=== PATIENT | male | born 1945 | race Caucasian/White ===

== ENCOUNTER 2020-09-08 09:25 | Emergency (ER) | payer MEDICARE ==
[2020-09-08 09:29] VITALS: BP 184/90; PULSE 95; RESP 16; TEMP 98
--- NOTE | 2020-09-08 10:31 | ED ---
Neck Injury/Pain HPI - General Chief Complaint: Neck Pain/Injury Stated Complaint: Neck pain Time Seen by Provider: 09/08/20 09:31 Mode of arrival: ambulatory Limitations: no limitations - History of Present Illness Initial Comments: Patient is a 75-year-old male presenting to the emergency Department with complaints of a few days of neck pain. Patient states over the past week he spent a few days pulling really large weeds throughout his yard. He states he's been using both hands to pull in the weeds. About 2 days ago started noticing some discomfort in his neck and some tightness, he states it felt better as the day progressed but towards the end of the day it came back. Over the past 2 days he has had very little range of motion secondary to tightness. The pain is mostly in the left side of his neck and extends down towards his left upper trap. He denies any numbness and tingling into his upper extremities, no chest pain or shortness of breath. He denies any previous surgeries or injuries to his neck. He denies any fevers or chills. He has no further complaints at this time. - Related Data Previous Rx's Medication Instructions Recorded Cyclobenzaprine [Flexeril] 5 mg PO BID #10 tablet 09/08/20 predniSONE 50 mg PO DAILY #5 tab 09/08/20 Allergies Allergy/AdvReac Type Severity Reaction Status Date / Time No Known Allergies Allergy Verified 09/08/20 09:27 Review of Systems ROS Statement: Those systems with pertinent positive or pertinent negative responses have been documented in the HPI. ROS Other: All systems not noted in ROS Statement are negative. Past Medical History Past Medical History: No Reported History History of Any Multi-Drug Resistant Organisms: None Reported Past Surgical History: No Surgical Hx Reported Past Psychological History: No Psychological Hx Reported Smoking Status: Current every day smoker Past Alcohol Use History: Occasional Past Drug Use History: None Reported General Exam - General Exam Comments Initial Comments: GENERAL: Patient is well-developed and well-nourished. Patient is nontoxic and in no acute distress. HEAD: Atraumatic, normocephalic. EYES: Pupils equal round and reactive to light, extraocular movements intact, sclera anicteric, conjunctiva are normal. Eyelids were unremarkable. ENT: TMs normal, nares patent, oropharynx clear without exudates. Moist mucous membranes. NECK: Patient has mild pain with palpation of the left cervical paraspinals extending down to the left upper trap. He does have decreased active range of motion in all directions secondary to tightness and discomfort. supple without lymphadenopathy or JVD. LUNGS: Unlabored respirations. Breath sounds clear to auscultation bilaterally and equal. No wheezes rales or rhonchi. HEART: Regular rate and rhythm without murmurs, rubs or gallops. ABDOMEN: Soft, nontender, normoactive bowel sounds. MUSCULOSKELETAL: Normal extremities with adequate strength and normal range of motion, no pitting or edema. No clubbing or cyanosis. NEUROLOGICAL: Patient is alert and oriented x 3. SKIN: Warm, Dry, normal turgor, no rashes or lesions noted. Limitations: no limitations Course Vital Signs 09/08/20 09:27 Temperature 98.0 F Pulse Rate 95 Respiratory 16 Rate Blood Pressure 184/90 O2 Sat by Pulse 96 Oximetry Medical Decision Making - Medical Decision Making Patient is a 75-year-old male presenting with neck pain and tightness increasing over the past 3 days. He has been pulling weeds all week and thinks this contributed. No previous neck surgeries, no numbness and tingling down his arms, no alarming symptoms. X-ray of the cervical spine reveals some degenerative changes, no acute fractures dislocations. I discussed with patient that his symptoms are most likely consistent with muscle spasms and overuse from his weed pulling. I will give him a prescription for a few days of a steroid as well as a muscle relaxer. He can also use Tylenol threes for more severe pain. He is agreeable to this plan of care. If symptoms persist to follow up with his primary care physician. He is agreeable to this. Return parameters were discussed with him and he verbalized understanding. Case discussed with Dr. Casper. Disposition Clinical Impression: Strain of neck muscle Disposition: HOME SELF-CARE Condition: Stable Instructions (If sedation given, give patient instructions): Cervical Strain (ED) Additional Instructions: Please return to the Emergency Department if symptoms worsen or any other concerns. Trial of steroids for inflammation, muscle relaxers for tightness. Also apply heat to the area and gentle stretching as discussed. May take Tylenol threes for more severe pain. Follow-up with your primary care physician if symptoms persist. Prescriptions: Cyclobenzaprine [Flexeril] 5 mg PO BID #10 tablet predniSONE 50 mg PO DAILY #5 tab Is patient prescribed a controlled substance at d/c from ED?: No Referrals: Tashi Burt MD [Primary Care Provider] - 1-2 days Time of Disposition: 11:02
--- NOTE | 2020-09-08 10:45 | XR ---
EXAMINATION TYPE: XR cervical spine comp DATE OF EXAM: 09/08/2020 COMPARISON: NONE HISTORY: 75 years Male. STUDY INDICATION GIVEN: Neck pain TECHNIQUE: Multiple radiographs of the cervical spine FINDINGS AND IMPRESSION: There is reversal of the cervical curvature. Alignment at the craniocervical junction is normal. Vertebral body heights are normal. Multilevel narrowing of the intervertebral spaces and bilateral neural foramina is demonstrated, bila teral neural foraminal narrowing is most severe at C3-4 and C4-5. There is also evidence of ventral a nd dorsal bony spurs. Included airways are patent. Hearing devices are noted. Radiopaque oral prostheses noted. Paranasal sinuses are aerated. Included lung apexes are unremarkable.
[2020-09-08] MEDS ORDERED: ACET/COD 300 MG/30 MG STARTER PACK 6 TAB BTL PO STA (11:00)
== END 2020-09-08 11:30 | disposition home or self-care (01) ==
LOC: EC 09:25
DX: S16.1XXA Strain of muscle, fascia and tendon at neck level, initial encounter (principal); F17.200 Nicotine dependence, unspecified, uncomplicated; X50.9XXA Other and unspecified overexertion or strenuous movements or postures, initial encounter; Y93.H2 Activity, gardening and landscaping; Y92.096 Garden or yard of other non-institutional residence as the place of occurrence of the external cause
CPT/HCPCS: 72050; 99283

== ENCOUNTER 2020-11-19 18:41 | Observation (INO) | payer MEDICARE ==
[2020-11-19 19:54] LABS: Basophils # (A) 0.1 k/uL (0-0.2); Basophils % (A) 1 %; Eosinophils # (A) 0.1 k/uL (0-0.7); Eosinophils % (A) 0 %; HCT 30.6 % (39.0-53.0); HGB 10.4 gm/dL (13.0-17.5); Lymphocytes # (A) 1.4 k/uL (1.0-4.8); Lymphocytes % (A) 9 %; MCH 34.6 pg (25.0-35.0); MCHC 34.1 g/dL (31.0-37.0); MCV 101.6 fL (80.0-100.0); Mean Platelet Volume 9.3; Monocytes # (A) 1.1 k/uL (0-1.0); Monocytes % (A) 7 %; Neutrophils # (A) 12.6 k/uL (1.3-7.7); Neutrophils % (A) 81 %; Platelet Count 234 k/uL (150-450); RBC 3.01 m/uL (4.30-5.90); RDW 12.4 % (11.5-15.5); WBC 15.5 k/uL (3.8-10.6)
[2020-11-19 20:04] LABS: Albumin 3.4 g/dL (3.5-5.0); Calcium 9.2 mg/dL (8.4-10.2); Magnesium 2.2 mg/dL (1.6-2.3); Potassium 4.9 mmol/L (3.5-5.1); Total Bilirubin 0.7 mg/dL (0.2-1.3); Total Protein 5.6 g/dL (6.3-8.2)
[2020-11-19 20:16] LABS: INR 0.9 (<1.2); Partial Thromboplastin Time 19.7 sec (22.0-30.0)
[2020-11-19] MEDS ORDERED: PANTOPRAZOLE 40 MG/10 ML VIAL IVP STA (20:41)
--- NOTE | 2020-11-19 20:55 | ED ---
GI Bleed HPI - General Source: patient, EMS, RN notes reviewed Mode of arrival: EMS Limitations: no limitations <Lawson Coleman - Last Filed: 11/19/20 20:53> <Bhupendra Hi - Last Filed: 11/19/20 21:00> - General Chief complaint: GI Bleed Stated complaint: GI Bleed Time Seen by Provider: 11/19/20 19:05 - History of Present Illness Initial comments: This a 75-year-old male presents emergency Department chief complaint of black tarry stools. Patient states started earlier today's had multiple episodes. P atient states she just was not feel well. Patient states he did have an episode of emesis which she states was dark, maroon-colored. Patient has no history of GI bleed he states he is on aspirin but does not take any other blood thinners or antiplatelets. Patient has no prior liver disease. Patient has no complaints of chest pain does have mild shortness breath but he doesn't his asthma. Patient states he feels fatigued, tired (Lawson Coleman) - Related Data Previous Rx's Medication Instructions Recorded Cyclobenzaprine [Flexeril] 5 mg PO BID #10 tablet 09/08/20 predniSONE 50 mg PO DAILY #5 tab 09/08/20 Allergies Allergy/AdvReac Type Severity Reaction Status Date / Time No Known Allergies Allergy Verified 11/19/20 19:02 Review of Systems ROS Other: All systems not noted in ROS Statement are negative. <Lawson Coleman - Last Filed: 11/19/20 20:53> ROS Other: All systems not noted in ROS Statement are negative. <Bhupendra Hi - Last Filed: 11/19/20 21:00> ROS Statement: Those systems with pertinent positive or pertinent negative responses have been documented in the HPI. Past Medical History Past Medical History: Hypertension History of Any Multi-Drug Resistant Organisms: None Reported Past Surgical History: No Surgical Hx Reported Past Psychological History: No Psychological Hx Reported Smoking Status: Current every day smoker Past Alcohol Use History: Occasional Past Drug Use History: None Reported <Lawson Coleman - Last Filed: 11/19/20 20:53> General Exam Limitations: no limitations General appearance: alert, in no apparent distress Head exam: Present: atraumatic, normocephalic, normal inspection ENT exam: Present: normal exam, normal oropharynx, mucous membranes moist Neck exam: Present: normal inspection, full ROM. Absent: tenderness, meningismus, lymphadenopathy Respiratory exam: Present: normal lung sounds bilaterally. Absent: respiratory distress, wheezes, rales, rhonchi, stridor Cardiovascular Exam: Present: regular rate, normal rhythm, normal heart sounds. Absent: systolic murmur, diastolic murmur, rubs, gallop, clicks GI/Abdominal exam: Present: soft, normal bowel sounds. Absent: distended, tenderness, guarding, rebound, rigid Rectal exam: Present: normal inspection, normal rectal tone, heme (+) stool, black stool <Lawson Coleman - Last Filed: 11/19/20 20:53> Course <Bhupendra Hi - Last Filed: 11/19/20 21:00> Vital Signs 11/19/20 18:59 Temperature 98.4 F Pulse Rate 101 H Respiratory 20 Rate Blood Pressure 97/53 O2 Sat by Pulse 97 Oximetry - Reevaluation(s) Reevaluation #1: 11/19/20 21:00 I did discuss case both with the admitting physician Dr. Love, and conservation officer Dr. Maza. Patient will be admitted, serial enzymes, serial hemoglobin, proton pump inhibitor (Bhupendra Hi) Medical Decision Making - Lab Data Result diagrams: 11/19/20 19:43 11/19/20 19:43 <Lawson Coleman - Last Filed: 11/19/20 20:53> - Lab Data Result diagrams: 11/19/20 19:43 11/19/20 19:43 <Bhupendra Hi - Last Filed: 11/19/20 21:00> - Medical Decision Making 75-year-old male presented for dark tarry stools. Patient has acute GI bleed patient was given Protonix, patient will have repeat H&H, with her GI consult. Patient did have an elevated troponin hasn't went to chest pain may be related to his GI bleed. Patient will have repeat troponin (Lawson Coleman) - Lab Data Lab Results 11/19/20 11/19/20 11/19/20 Range/Units 19:30 19:40 19:43 WBC 15.5 H (3.8-10.6) k/uL RBC 3.01 L (4.30-5.90) m/uL Hgb 10.4 L (13.0-17.5) gm/dL Hct 30.6 L (39.0-53.0) % MCV 101.6 H (80.0-100.0) fL MCH 34.6 (25.0-35.0) pg MCHC 34.1 (31.0-37.0) g/dL RDW 12.4 (11.5-15.5) % Plt Count 234 (150-450) k/uL MPV 9.3 Neutrophils % 81 % Lymphocytes % 9 % Monocytes % 7 % Eosinophils % 0 % Basophils % 1 % Neutrophils # 12.6 H (1.3-7.7) k/uL Lymphocytes # 1.4 (1.0-4.8) k/uL Monocytes # 1.1 H (0-1.0) k/uL Eosinophils # 0.1 (0-0.7) k/uL Basophils # 0.1 (0-0.2) k/uL PT (9.0-12.0) sec INR (<1.2) APTT (22.0-30.0) sec Sodium (137-145) mmol/L Potassium (3.5-5.1) mmol/L Chloride (98-107) mmol/L Carbon Dioxide (22-30) mmol/L Anion Gap mmol/L BUN (9-20) mg/dL Creatinine (0.66-1.25) mg/dL Est GFR (CKD-EPI)AfAm (>60 ml/min/1.73 sqM) Est GFR (CKD-EPI)NonAf (>60 ml/min/1.73 sqM) Glucose (74-99) mg/dL Plasma Lactic Acid Timmy (0.7-2.0) mmol/L Calcium (8.4-10.2) mg/dL Magnesium (1.6-2.3) mg/dL Total Bilirubin (0.2-1.3) mg/dL AST (17-59) U/L ALT (4-49) U/L Alkaline Phosphatase (38-126) U/L Troponin I (0.000-0.034) ng/mL Total Protein (6.3-8.2) g/dL Albumin (3.5-5.0) g/dL Lipase (23-300) U/L Blood Type A Positive Blood Type Confirm A Positive Blood Type Recheck No Previous Record Bld Type Recheck Status CABO Indicated Antibody Screen NEGATIVE Spec Expiration Date 11/22/2020233911/19/20 11/19/20 11/19/20 Range/Units 19:43 19:43 19:43 WBC (3.8-10.6) k/uL RBC (4.30-5.90) m/uL Hgb (13.0-17.5) gm/dL Hct (39.0-53.0) % MCV (80.0-100.0) fL MCH (25.0-35.0) pg MCHC (31.0-37.0) g/dL RDW (11.5-15.5) % Plt Count (150-450) k/uL MPV Neutrophils % % Lymphocytes % % Monocytes % % Eosinophils % % Basophils % % Neutrophils # (1.3-7.7) k/uL Lymphocytes # (1.0-4.8) k/uL Monocytes # (0-1.0) k/uL Eosinophils # (0-0.7) k/uL Basophils # (0-0.2) k/uL PT 10.0 (9.0-12.0) sec INR 0.9 (<1.2) APTT 19.7 L (22.0-30.0) sec Sodium 133 L (137-145) mmol/L Potassium 4.9 (3.5-5.1) mmol/L Chloride 107 (98-107) mmol/L Carbon Dioxide 19 L (22-30) mmol/L Anion Gap 7 mmol/L BUN 87 H (9-20) mg/dL Creatinine 1.32 H (0.66-1.25) mg/dL Est GFR (CKD-EPI)AfAm 60 (>60 ml/min/1.73 sqM) Est GFR (CKD-EPI)NonAf 52 (>60 ml/min/1.73 sqM) Glucose 114 H (74-99) mg/dL Plasma Lactic Acid Timmy 1.1 (0.7-2.0) mmol/L Calcium 9.2 (8.4-10.2) mg/dL Magnesium 2.2 (1.6-2.3) mg/dL Total Bilirubin 0.7 (0.2-1.3) mg/dL AST 19 (17-59) U/L ALT 14 (4-49) U/L Alkaline Phosphatase 61 (38-126) U/L Troponin I (0.000-0.034) ng/mL Total Protein 5.6 L (6.3-8.2) g/dL Albumin 3.4 L (3.5-5.0) g/dL Lipase 86 (23-300) U/L Blood Type Blood Type Confirm Blood Type Recheck Bld Type Recheck Status Antibody Screen Spec Expiration Date 11/19/20 Range/Units 19:43 WBC (3.8-10.6) k/uL RBC (4.30-5.90) m/uL Hgb (13.0-17.5) gm/dL Hct (39.0-53.0) % MCV (80.0-100.0) fL MCH (25.0-35.0) pg MCHC (31.0-37.0) g/dL RDW (11.5-15.5) % Plt Count (150-450) k/uL MPV Neutrophils % % Lymphocytes % % Monocytes % % Eosinophils % % Basophils % % Neutrophils # (1.3-7.7) k/uL Lymphocytes # (1.0-4.8) k/uL Monocytes # (0-1.0) k/uL Eosinophils # (0-0.7) k/uL Basophils # (0-0.2) k/uL PT (9.0-12.0) sec INR (<1.2) APTT (22.0-30.0) sec Sodium (137-145) mmol/L Potassium (3.5-5.1) mmol/L Chloride (98-107) mmol/L Carbon Dioxide (22-30) mmol/L Anion Gap mmol/L BUN (9-20) mg/dL Creatinine (0.66-1.25) mg/dL Est GFR (CKD-EPI)AfAm (>60 ml/min/1.73 sqM) Est GFR (CKD-EPI)NonAf (>60 ml/min/1.73 sqM) Glucose (74-99) mg/dL Plasma Lactic Acid Timmy (0.7-2.0) mmol/L Calcium (8.4-10.2) mg/dL Magnesium (1.6-2.3) mg/dL Total Bilirubin (0.2-1.3) mg/dL AST (17-59) U/L ALT (4-49) U/L Alkaline Phosphatase (38-126) U/L Troponin I 0.115 H* (0.000-0.034) ng/mL Total Protein (6.3-8.2) g/dL Albumin (3.5-5.0) g/dL Lipase (23-300) U/L Blood Type Blood Type Confirm Blood Type Recheck Bld Type Recheck Status Antibody Screen Spec Expiration Date Critical Care Time Critical Care Time: Yes Total Critical Care Time: 35 <Lawson Coleman - Last Filed: 11/19/20 20:53> Disposition <Lawson Coleman - Last Filed: 11/19/20 20:53> <Bhupendra Hi - Last Filed: 11/19/20 21:00> Clinical Impression: GI bleed, Elevated troponin Disposition: ADMITTED IP TO THIS HOSP Referrals: Nonstaff,Physician [Primary Care Provider] - 1-2 days
[2020-11-19] MEDS ORDERED: NITROGLYCERIN SL TABS 0.4 MG TAB SUBLINGUAL PRN (20:56)
[2020-11-20] MEDS: PANTOPRAZOLE 40 MG/10 ML VIAL IVP SCH ×3 (00:31→19:49)
--- NOTE | 2020-11-20 00:49 | P.HPIM ---
History of Present Illness H&P Date: 11/20/20 Patient is a 75-year-old male with a PMH of hypertension and moderate asthma who presented to the emergency room with complaints of bloody vomitus and black tarry stools. The patient reports that he had been in his usual state of health until this morning when he suddenly developed nausea followed by 8-10 episodes of black tarry stools throughout the afternoon. He then had a single episode of vomitus with dark red blood. The patient denied any history of GI bleeding or GI pathology. Also denied being on any anticoagulants aside from low-dose aspirin. He reported a chronic intermittent achy epigastric discomfort, occurring with or without exertion, lasting for up to an hour and then resolving spontaneously. He denied experiencing abdominal pain today, chest discomfort, shortness of breath, or palpitations. Also denied fever, chills, cough. After evaluation in the emergency room was remarkable for leukocytosis of 15.5, hemoglobin 10.4, MCV 101.6, sodium 133, BUN 87, creatinine 1.32, lactic acid 1.1, troponin 0.115, with stool occult blood positive. Review of systems: Pertinent positives and negatives as discussed in HPI, a complete review of systems was performed and all other systems are negative. Physical examination: General: non toxic, no distress, appears at stated age, morbidly obese Derm: no unusual rashes/lesions no unusual ecchymoses, warm, dry Head: atraumatic, normocephalic, symmetric Eyes: EOMI, no lid lag, anicteric sclera, pupils equal round reactive to light ENT: Nose and ears atraumatic, no thrush, no pharyngeal erythema Neck: No thyromegaly, no cervical lymphadenopathy, trachea midline, supple Mouth: no lip lesion, mucus membranes moist Cardiovascular: S1S2 reg, no murmur, positive posterior tibial pulse bilateral, no edema, capillary refill less than 2 seconds Lungs: Mild bilateral wheezing appreciated, no rhonchi, no rales , no accessory muscle use Abdominal: soft, nontender to palpation, no guarding, no appreciable organomegaly, normal bowel sounds Ext: no gross muscle atrophy, muscle strength 5 out of 5 in all 4 extremities grossly, no contractures, Neuro: CN II-XI grossly intact, light touch intact all 4 extremities, finger to nose within normal limits, Psych: Alert, oriented, appropriate affect Assessment/plan Acute blood loss anemia secondary to GI bleeding -Continue to monitor hemoglobin -GI consulted -IV fluids -Continue with Protonix Elevated troponin -Patient denying chest discomfort or shortness of breath -Suspected type II AR in setting of acute GI bleeding -Continue to trend for now -Cardiac monitoring -Cardiology consulted Kidney failure, acute versus chronic -BUN likely elevated due to GI bleeding -Continue with IV fluids and monitor for now Chronic conditions: HTN, Asthma -C/w Home inhalers -Hold off on antihypertensives in setting of borderline BP DVT prophylaxis -IPCDs The patient is admitted with an anticipated greater than 2 midnight stay for evaluation of GIB CODE STATUS: Full Code Discussed with: Patient Anticipated discharge date: in am Anticipated discharge place: Home Past Medical History Past Medical History: Hypertension History of Any Multi-Drug Resistant Organisms: None Reported Past Surgical History: No Surgical Hx Reported Past Psychological History: No Psychological Hx Reported Smoking Status: Current every day smoker Past Alcohol Use History: Occasional Past Drug Use History: None Reported Medications and Allergies Home Medications Medication Instructions Recorded Confirmed Type Albuterol Sulfate [Proair Hfa] 2 puff INHALATION RT-Q6H PRN 11/19/20 11/19/20 History Atorvastatin [Lipitor] 40 mg PO HS 11/19/20 11/19/20 History Fluticasone Propion/Salmeterol 1 puff INHALATION RT-BID 11/19/20 11/19/20 History [Wixela 250-50 Inhub] Levothyroxine Sodium [Synthroid] 50 mcg PO DAILY 11/19/20 11/19/20 History Meclizine HCl 25 mg PO TID PRN 11/19/20 11/19/20 History Montelukast Sodium [Singulair] 10 mg PO HS 11/19/20 11/19/20 History Sildenafil [Revatio] 20 mg PO DAILY PRN 11/19/20 11/19/20 History lisinopriL [Prinivil] 20 mg PO DAILY 11/19/20 11/19/20 History Allergies Allergy/AdvReac Type Severity Reaction Status Date / Time No Known Allergies Allergy Verified 11/19/20 23:05 Physical Exam Vitals: Vital Signs Temp Pulse Resp BP Pulse Ox 11/19/20 23:00 87 108/54 95 11/19/20 22:00 96 97/56 99 11/19/20 18:59 98.4 F 101 H 20 97/53 97 Intake and Output 11/19/20 11/19/20 11/20/20 14:59 22:59 06:59 Other: Weight 108.862 kg Results CBC & Chem 7: 11/20/20 00:29 11/19/20 19:43 Labs: Abnormal Lab Results - Last 24 Hours (Table) 11/19/20 11/19/20 11/19/20 Range/Units 19:43 19:43 19:43 WBC 15.5 H (3.8-10.6) k/uL RBC 3.01 L (4.30-5.90) m/uL Hgb 10.4 L (13.0-17.5) gm/dL Hct 30.6 L (39.0-53.0) % MCV 101.6 H (80.0-100.0) fL Neutrophils # 12.6 H (1.3-7.7) k/uL Monocytes # 1.1 H (0-1.0) k/uL APTT 19.7 L (22.0-30.0) sec Sodium 133 L (137-145) mmol/L Carbon Dioxide 19 L (22-30) mmol/L BUN 87 H (9-20) mg/dL Creatinine 1.32 H (0.66-1.25) mg/dL Glucose 114 H (74-99) mg/dL Troponin I (0.000-0.034) ng/mL Total Protein 5.6 L (6.3-8.2) g/dL Albumin 3.4 L (3.5-5.0) g/dL 11/19/20 11/19/20 Range/Units 19:43 21:55 WBC (3.8-10.6) k/uL RBC (4.30-5.90) m/uL Hgb (13.0-17.5) gm/dL Hct (39.0-53.0) % MCV (80.0-100.0) fL Neutrophils # (1.3-7.7) k/uL Monocytes # (0-1.0) k/uL APTT (22.0-30.0) sec Sodium (137-145) mmol/L Carbon Dioxide (22-30) mmol/L BUN (9-20) mg/dL Creatinine (0.66-1.25) mg/dL Glucose (74-99) mg/dL Troponin I 0.115 H* 0.140 H* (0.000-0.034) ng/mL Total Protein (6.3-8.2) g/dL Albumin (3.5-5.0) g/dL
[2020-11-20 01:13] LABS: Basophils # (A) 0.1 k/uL (0-0.2); Basophils % (A) 1 %; Eosinophils # (A) 0.1 k/uL (0-0.7); Eosinophils % (A) 1 %; HCT 27.8 % (39.0-53.0); HGB 9.4 gm/dL (13.0-17.5); Lymphocytes # (A) 2.1 k/uL (1.0-4.8); Lymphocytes % (A) 16 %; MCH 33.7 pg (25.0-35.0); MCV 99.1 fL (80.0-100.0); Mean Platelet Volume 9.7; Monocytes # (A) 1.1 k/uL (0-1.0); Monocytes % (A) 8 %; Neutrophils # (A) 9.4 k/uL (1.3-7.7); Neutrophils % (A) 72 %; Platelet Count 184 k/uL (150-450); WBC 13.1 k/uL (3.8-10.6)
[2020-11-20] MEDS ORDERED: SODIUM CHLORIDE 0.9% 1,000 ML IV ONE (01:31)
[2020-11-20] MEDS ORDERED: MECLIZINE 25 MG TAB PO PRN (01:32)
[2020-11-20] MEDS ORDERED: IPRATROPIUM-ALBUTEROL 3 ML NEB INHALATION PRN (01:33)
[2020-11-20] MEDS ORDERED: SODIUM CHLORIDE 0.9% 1,000 ML IV SCH (01:45)
[2020-11-20 05:28] LABS: Basophils # (A) 0.1 k/uL (0-0.2); Basophils % (A) 1 %; Eosinophils # (A) 0.1 k/uL (0-0.7); Eosinophils % (A) 1 %; HGB 8.9 gm/dL (13.0-17.5); Lymphocytes # (A) 2.2 k/uL (1.0-4.8); Lymphocytes % (A) 19 %; MCH 33.6 pg (25.0-35.0); MCHC 32.9 g/dL (31.0-37.0); MCV 102.1 fL (80.0-100.0); Macrocytosis Slight; Mean Platelet Volume 9.4; Monocytes # (A) 0.8 k/uL (0-1.0); Monocytes % (A) 7 %; Neutrophils % (A) 70 %; Platelet Count 207 k/uL (150-450); RBC 2.64 m/uL (4.30-5.90); WBC 11.4 k/uL (3.8-10.6)
[2020-11-20 05:42] LABS: Calcium 8.4 mg/dL (8.4-10.2)
[2020-11-20] MEDS: LEVOTHYROXINE 50 MCG TAB PO SCH (06:25)
[2020-11-20] MEDS: IPRATROPIUM-ALBUTEROL 3 ML NEB INHALATION SCH ×4 (08:17→19:52)
[2020-11-20] MEDS: SYMBICORT 80-4.5 MCG INHALER INHALATION SCH ×2 (08:17→19:58)
--- NOTE | 2020-11-20 10:04 | P.CRDCN ---
History of Present Illness Consult date: 11/20/20 History of present illness: HISTORY OF PRESENT ILLNESS: This is a 75-year-old male with a past medical history significant for hypertension, hyperlipidemia, hypothyroidism, asthma, AAA, and nicotine dependence. Patient follows with a artificial pearl maker out of [facility] but he is unsure of the name. We have been asked to see the patient in consultation for abnormal troponins. Patient examined at the bedside. Patient states yesterday he had multiple episodes of diarrhea that was black in color. He also reports one episode of emesis that was dark red in color. The patient is not on anticoagulation. He does report taking a baby aspirin daily. He also reports taking Motrin 800 mg 2 days ago but states he does not take this on a regular basis. No further bleeding since coming to the hospital. Hemoglobin on admission 10.4. Most recent hemoglobin 8.9. The patient denies any chest pain or pressure. He denies shortness of breath. EKG reveals sinus mechanism with T-wave inversions and high lateral leads Laboratory data: WBC 11.4. Hemoglobin 8.9. Platelet count 207. Sodium 137. Potassium 5.0. BUN 72. Creatinine 1.19. Troponin 0.115. 0.140. 0.115. Stool for occult blood positive. Current home cardiac medications include lisinopril 20 mg daily, Lipitor 40 mg daily, and aspirin 81 mg daily REVIEW OF SYSTEMS: At the time of my exam: CONSTITUTIONAL: Denies fever or chills. HEENT: Denies blurred vision, vision changes, or eye pain. Denies hemoptysis CARDIOVASCULAR: Denies chest pain. Denies orthopnea. Denies PND. Denies palpitations RESPIRATORY: Denies shortness of breath. GASTROINTESTINAL: Denies abdominal pain. Denies nausea or vomiting. HEMATOLOGIC: Denies bleeding disorders. GENITOURINARY: Denies any blood in urine. SKIN: Denies pruitis. Denies rash. PHYSICAL EXAM: VITAL SIGNS: Reviewed. GENERAL: Well-developed in no acute distress. HEENT: Head is normocephalic. Pupils are equal, round. Sclerae anicteric. Mucous membranes of the mouth are moist. Neck supple. No JVD or thyromegaly LUNGS: Respirations even and unlabored. Lungs diminished with expiratory wheezing bilaterally. HEART: Regular rate and rhythm. S1 and S2 heard. Systolic murmur noted. ABDOMEN: Soft. Nondistended. Nontender. EXTREMITIES: Normal range of motion. No clubbing or cyanosis. Peripheral pulses intact. No lower extremity edema NEUROLOGIC: Awake and alert. Oriented x 3. ASSESSMENT: Acute GI bleed Acute blood loss anemia Abnormal troponins, no evidence of acute coronary syndrome, suspect type II AK due to oxygen supply and demand mismatch secondary to anemia History of AAA Known heart murmur, suspect aortic stenosis Hypertension Hyperlipidemia Hypothyroidism Nicotine dependence PLAN: An acute coronary event has been ruled out. Patient states he had an echocardiogram completed last week at [facility]. We will obtain records from recent echocardiogram and compare to repeat echocardiogram performed here. Obtain 2D echo to assess cardiac structure and function Monitor hemoglobin Continue lisinopril and Lipitor Patient to undergo EGD tomorrow There are no absolute contraindications from a cardiac standpoint to undergo endoscopy tomorrow Further recommendations pending patient's course Nurse practitioner note has been reviewed by physician. Signing provider agrees with the documented findings, assessment, and plan of care. Past Medical History Past Medical History: Asthma, Hypertension, Sleep Apnea/CPAP/BIPAP, Thyroid Disorder Additional Past Medical History / Comment(s): vertigo History of Any Multi-Drug Resistant Organisms: None Reported Past Surgical History: No Surgical Hx Reported Additional Past Surgical History / Comment(s): cataracts Past Anesthesia/Blood Transfusion Reactions: No Reported Reaction Past Psychological History: No Psychological Hx Reported Smoking Status: Current every day smoker Past Alcohol Use History: Occasional Additional Past Alcohol Use History / Comment(s): smokes a few cigs a day, social drinker Past Drug Use History: None Reported - Past Family History Father Family Medical History: Cancer Mother Family Medical History: Dementia Sister(s) Family Medical History: Rheumatoid Arthritis (RA) Medications and Allergies Home Medications Medication Instructions Recorded Confirmed Type Albuterol Sulfate [Proair Hfa] 2 puff INHALATION RT-Q6H PRN 11/19/20 11/19/20 History Atorvastatin [Lipitor] 40 mg PO HS 11/19/20 11/19/20 History Fluticasone Propion/Salmeterol 1 puff INHALATION RT-BID 11/19/20 11/19/20 History [Wixela 250-50 Inhub] Levothyroxine Sodium [Synthroid] 50 mcg PO DAILY 11/19/20 11/19/20 History Meclizine HCl 25 mg PO TID PRN 11/19/20 11/19/20 History Montelukast Sodium [Singulair] 10 mg PO HS 11/19/20 11/19/20 History Sildenafil [Revatio] 20 mg PO DAILY PRN 11/19/20 11/19/20 History lisinopriL [Prinivil] 20 mg PO DAILY 11/19/20 11/19/20 History Allergies Allergy/AdvReac Type Severity Reaction Status Date / Time No Known Allergies Allergy Verified 11/19/20 23:05 Physical Exam Vitals: Vital Signs Temp Pulse Pulse Resp BP BP Pulse Ox 11/20/20 03:38 97.9 F 89 20 117/91 100 11/20/20 01:52 98 F 89 22 109/57 100 11/20/20 00:00 98 113/51 93 L 11/19/20 23:00 87 108/54 95 11/19/20 22:00 96 97/56 99 11/19/20 18:59 98.4 F 101 H 20 97/53 97 Intake and Output 11/19/20 11/20/20 11/20/20 22:59 06:59 14:59 Intake Total 0 Output Total 525 Balance -525 Intake: Oral 0 Output: Urine 525 Other: Voiding Method Toilet Urinal # Voids 1 Weight 108.862 kg 110.4 kg Results 11/20/20 04:45 11/20/20 04:45 Cardiac Enzymes 11/19/20 11/19/20 11/19/20 Range/Units 19:43 19:43 21:55 AST 19 (17-59) U/L Troponin I 0.115 H* 0.140 H* (0.000-0.034) ng/mL 11/20/20 Range/Units 01:00 AST (17-59) U/L Troponin I 0.115 H* (0.000-0.034) ng/mL Coagulation 11/19/20 Range/Units 19:43 PT 10.0 (9.0-12.0) sec APTT 19.7 L (22.0-30.0) sec CBC 11/19/20 11/20/20 11/20/20 Range/Units 19:43 00:29 04:45 WBC 15.5 H 13.1 H 11.4 H (3.8-10.6) k/uL RBC 3.01 L 2.80 L 2.64 L (4.30-5.90) m/uL Hgb 10.4 L 9.4 L 8.9 L (13.0-17.5) gm/dL Hct 30.6 L 27.8 L 27.0 L (39.0-53.0) % Plt Count 234 184 207 (150-450) k/uL Comprehensive Metabolic Panel 11/19/20 11/20/20 Range/Units 19:43 04:45 Sodium 133 L 137 (137-145) mmol/L Potassium 4.9 5.0 (3.5-5.1) mmol/L Chloride 107 111 H (98-107) mmol/L Carbon Dioxide 19 L 23 (22-30) mmol/L BUN 87 H 72 H (9-20) mg/dL Creatinine 1.32 H 1.19 (0.66-1.25) mg/dL Glucose 114 H 104 H (74-99) mg/dL Calcium 9.2 8.4 (8.4-10.2) mg/dL AST 19 (17-59) U/L ALT 14 (4-49) U/L Alkaline Phosphatase 61 (38-126) U/L Total Protein 5.6 L (6.3-8.2) g/dL Albumin 3.4 L (3.5-5.0) g/dL Current Medications Generic Name Dose Route Start Last Admin Trade Name Freq PRN Reason Stop Dose Admin Albuterol/Ipratropium 3 ml 11/20/20 08:00 Ipratropium-Albuterol 3 Ml Neb INHALATION RT-QID CHRISTELLE Albuterol/Ipratropium 3 ml 11/20/20 01:33 Ipratropium-Albuterol 3 Ml Neb INHALATION RT-QID PRN Shortness Of Breath Or Wheezing Atorvastatin Calcium 40 mg 11/20/20 21:00 Atorvastatin 40 Mg Tab PO HS CHRISTELLE Budesonide/Formoterol Fumarate 2 puff 11/20/20 08:00 Symbicort 80-4.5 Mcg Inhaler INHALATION RT-BID CHRISTELLE Sodium Chloride 1,000 mls @ 75 mls/hr 11/20/20 01:45 11/20/20 02:57 Saline 0.9% IV 75 mls/hr .[id number] CHRISTELLE Administration Levothyroxine Sodium 50 mcg 11/20/20 06:30 11/20/20 06:25 Levothyroxine 50 Mcg Tab PO 50 mcg DAILY@0630 CHRISTELLE Administration Meclizine HCl 25 mg 11/20/20 01:32 Meclizine 25 Mg Tab PO TID PRN DIZZINESS Montelukast Sodium 10 mg 11/20/20 21:00 Montelukast 10 Mg Tab PO HS CHRISTELLE Nitroglycerin 0.4 mg 11/19/20 20:56 Nitroglycerin Sl Tabs 0.4 Mg Tab SUBLINGUAL Q5M PRN Chest Pain Pantoprazole Sodium 40 mg 11/19/20 21:00 11/20/20 00:31 Pantoprazole 40 Mg/10 Ml Vial IVP 40 mg BID CHRISTELLE Administration Intake and Output 11/19/20 11/20/20 11/20/20 22:59 06:59 14:59 Intake Total 0 Output Total 525 Balance -525 Intake: Oral 0 Output: Urine 525 Other: Voiding Method Toilet Urinal # Voids 1 Weight 108.862 kg 110.4 kg 11/20/20 04:45 11/20/20 04:45
[2020-11-20 10:27] LABS: Chol/HDL Ratio 2.7 Ratio; HDL Cholesterol 42.2 mg/dL (40.00-60.00); VLDL Calculation 35.8 mg/dL (5.00-40.00)
--- NOTE | 2020-11-20 11:54 | ECHOF ---
Referral Reason:abnormal troponins MEASUREMENTS -------- HEIGHT: 165.1 cm WEIGHT: 110.2 kg BP: 117/91 RVIDd: 3.1 cm (< 3.3) IVSd: 1.6 cm (0.6 - 1.1) LVIDd: 4.5 cm (3.9 - 5.3) LVPWd: 1.5 cm (0.6 - 1.1) IVSs: 2.1 cm LVIDs: 2.6 cm LVPWs: 1.8 cm LA Diam: 3.8 cm (2.7 - 3.8) LAESV Index (A-L): 21.72 ml/m Ao Diam: 3.3 cm (2.0 - 3.7) AV Cusp: 1.6 cm (1.5 - 2.6) MV EXCURSION: 15.271 mm (> 18.000) MV EF SLOPE: 25 mm/s (70 - 150) EPSS: 0.2 cm MV E Edis: 0.69 m/s MV DecT: 312 ms MV A Edis: 0.91 m/s MV E/A Ratio: 0.76 AV maxP.17 mmHg AV meanP.86 mmHg AR PHT: 1503 ms RAP: 5.00 mmHg RVSP: 38.72 mmHg FINDINGS -------- Sinus rhythm. This was a technically adequate study. The left ventricular size is normal. There is moderate concentric left ventricular hypertrophy. O verall left ventricular systolic function is normal with, an EF between 60 - 65 %. The right ventricle is normal in size. Normal LA size by volume 22+/-6 ml/m2. The right atrium is normal in size. Interatrial and interventricular septum intact. There is mild to moderate aortic valve sclerosis. There is mild aortic regurgitation. There is mi ld aortic stenosis present. Peak/mean gradient across the Aortic Valve is 34.17mmHg / 15.86mmHg. Mild mitral annular calcification present. Mild tricuspid regurgitation present. There is mild pulmonary hypertension. The right ventricular systolic pressure, as measured by Doppler, is 38.72mmHg. There is no pulmonic regurgitation present. The aortic root size is normal. Normal inferior vena cava with normal inspiratory collapse consistent with estimated right atrial pre ssure of 5 mmHg. There is no pericardial effusion. CONCLUSIONS -------- 1. The left ventricular size is normal. 2. There is moderate concentric left ventricular hypertrophy. 3. Overall left ventricular systolic function is normal with, an EF between 60 - 65 %. 4. There is mild to moderate aortic valve sclerosis. 5. There is mild aortic regurgitation. 6. There is mild aortic stenosis present. 7. Peak/mean gradient across the Aortic Valve is 34.17mmHg / 15.86mmHg. 8. Mild mitral annular calcification present. 9. Mild tricuspid regurgitation present. 10. There is mild pulmonary hypertension. 11. The right ventricular systolic pressure, as measured by Doppler, is 38.72mmHg. 12. There is no pericardial effusion. FLIGHT PURSER: Cheli Guerin RDCS
--- NOTE | 2020-11-20 12:17 | P.CONS ---
History of Present Illness - Reason for Consult Consult date: 11/20/20 GI Bleed Requesting physician: Lawson Coleman - Chief Complaint Melena - History of Present Illness This a 75-year-old white male who presented to the emergency department y esterday with complaints of several episodes of black stool followed by coffee- ground and maroon colored emesis. Patient states overall he had been feeling well until he started having some nausea followed by several episodes up to 10 times of black loose tarry stools followed by 1-2 episodes of dark-colored emesis. His past medical history is significant for hypertension and asthma. He denies any previous history of GI bleed or peptic ulcer disease. He does state he gets occasional acid reflux. He denies any use of any anticoagulation, he has on a low-dose baby aspirin and does take ibuprofen 800 mg 1 tablet approximately every other day. He also states that he had been getting some i ntermittent epigastric pain over the last couple weeks. He has no previous history of EGD. His last colonoscopy was 2 years ago done at [facility] which was significant for polypectomy and states that he is supposed to have a repeat done next year. He does state that he follows with richie roenterologist out of [facility] although he cannot recall name, states that he has had a change in his bowel pattern over the last couple years and has very sticky thick stool and some leakage of feces therefore he follows with gastroenterology. On admission he was noted to have a hemoglobin of 10.4 which has down. He was also noted on admission to have elevated troponins 3. Cardiology is on consult. Today repeat labs WBC 11.4, hemoglobin 8.9 hematocrit 27 platelet count 207,000, INR 0.9, BUN 72 creatinine 1.19 total bilirubin 0.7 AST 19 ALT 14 alkaline phosphatase 61 Review of Systems REVIEW OF SYSTEMS: CARDIOPULMONARY: No chest pain or shortness of breath. Gastrointestinal: Gentleman epigastric pain. Nausea and vomiting with coffee- ground and maroon colored emesis. Multiple loose stools which were black and tarry. GENITOURINARY: No dysuria or hematuria. MUSCULOSKELETAL: Reports normal range of motion., Joint pain. SKIN: No rashes. No jaundice. ENDOCRINE: No chills, fevers. No excessive weight gain or loss. No polydipsia or polyuria. PSYCHIATRIC: Unremarkable. NEUROLOGY: No change in mental status. Denies dizziness, headache. ENT: Vision unremarkable. CONSTITUTIONAL: No recent weight loss. No fever, chills, night sweats. Past Medical History Past Medical History: Asthma, Hypertension, Sleep Apnea/CPAP/BIPAP, Thyroid Disorder Additional Past Medical History / Comment(s): vertigo History of Any Multi-Drug Resistant Organisms: None Reported Past Surgical History: No Surgical Hx Reported Additional Past Surgical History / Comment(s): cataracts Past Anesthesia/Blood Transfusion Reactions: No Reported Reaction Past Psychological History: No Psychological Hx Reported Smoking Status: Current every day smoker Past Alcohol Use History: Occasional Additional Past Alcohol Use History / Comment(s): smokes a few cigs a day, social drinker Past Drug Use History: None Reported - Past Family History Father Family Medical History: Cancer Mother Family Medical History: Dementia Sister(s) Family Medical History: Rheumatoid Arthritis (RA) Medications and Allergies Home Medications Medication Instructions Recorded Confirmed Type Albuterol Sulfate [Proair Hfa] 2 puff INHALATION RT-Q6H PRN 11/19/20 11/19/20 History Atorvastatin [Lipitor] 40 mg PO HS 11/19/20 11/19/20 History Fluticasone Propion/Salmeterol 1 puff INHALATION RT-BID 11/19/20 11/19/20 History [Wixela 250-50 Inhub] Levothyroxine Sodium [Synthroid] 50 mcg PO DAILY 11/19/20 11/19/20 History Meclizine HCl 25 mg PO TID PRN 11/19/20 11/19/20 History Montelukast Sodium [Singulair] 10 mg PO HS 11/19/20 11/19/20 History Sildenafil [Revatio] 20 mg PO DAILY PRN 11/19/20 11/19/20 History lisinopriL [Prinivil] 20 mg PO DAILY 11/19/20 11/19/20 History Allergies Allergy/AdvReac Type Severity Reaction Status Date / Time No Known Allergies Allergy Verified 11/19/20 23:05 Physical Exam Vitals: Vital Signs Temp Pulse Pulse Resp BP BP Pulse Ox 11/20/20 08:35 88 11/20/20 08:17 100 11/20/20 03:38 97.9 F 89 20 117/91 100 11/20/20 01:52 98 F 89 22 109/57 100 11/20/20 00:00 98 113/51 93 L 11/19/20 23:00 87 108/54 95 11/19/20 22:00 96 97/56 99 11/19/20 18:59 98.4 F 101 H 20 97/53 97 Intake and Output 11/19/20 11/20/20 11/20/20 22:59 06:59 14:59 Intake Total 0 Output Total 525 Balance -525 Intake: Oral 0 Output: Urine 525 Other: Voiding Method Toilet Urinal # Voids 1 Weight 108.862 kg 110.4 kg General appearance: The patient is alert, oriented, appears in no acute distress. HET: Head is normocephalic and atraumatic. Conjunctiva pink. Sclera anicteric. Neck: Supple without lymphadenopathy. Trachea midline. Heart: S1 S2. Regular rate and rhythm. Lungs: Clear to auscultation. Abdomen: Soft, epigastric pain, nondistended with bowel sounds. No guarding or rigidity. Skin: No rashes. No jaundice. Extremities: Normal skin color and turgor. No pedal edema. Neurological: No focal deficits. Alert and oriented 3.. Results CBC & Chem 7: 11/20/20 04:45 11/20/20 04:45 Labs: Abnormal Lab Results - Last 24 Hours (Table) 11/19/20 11/19/20 11/19/20 Range/Units 19:43 19:43 19:43 WBC 15.5 H (3.8-10.6) k/uL RBC 3.01 L (4.30-5.90) m/uL Hgb 10.4 L (13.0-17.5) gm/dL Hct 30.6 L (39.0-53.0) % MCV 101.6 H (80.0-100.0) fL Neutrophils # 12.6 H (1.3-7.7) k/uL Monocytes # 1.1 H (0-1.0) k/uL APTT 19.7 L (22.0-30.0) sec Sodium 133 L (137-145) mmol/L Chloride (98-107) mmol/L Carbon Dioxide 19 L (22-30) mmol/L BUN 87 H (9-20) mg/dL Creatinine 1.32 H (0.66-1.25) mg/dL Glucose 114 H (74-99) mg/dL Troponin I (0.000-0.034) ng/mL Total Protein 5.6 L (6.3-8.2) g/dL Albumin 3.4 L (3.5-5.0) g/dL 11/19/20 11/19/20 11/20/20 Range/Units 19:43 21:55 00:29 WBC 13.1 H (3.8-10.6) k/uL RBC 2.80 L (4.30-5.90) m/uL Hgb 9.4 L (13.0-17.5) gm/dL Hct 27.8 L (39.0-53.0) % MCV (80.0-100.0) fL Neutrophils # 9.4 H (1.3-7.7) k/uL Monocytes # 1.1 H (0-1.0) k/uL APTT (22.0-30.0) sec Sodium (137-145) mmol/L Chloride (98-107) mmol/L Carbon Dioxide (22-30) mmol/L BUN (9-20) mg/dL Creatinine (0.66-1.25) mg/dL Glucose (74-99) mg/dL Troponin I 0.115 H* 0.140 H* (0.000-0.034) ng/mL Total Protein (6.3-8.2) g/dL Albumin (3.5-5.0) g/dL 11/20/20 11/20/20 11/20/20 Range/Units 01:00 04:45 04:45 WBC 11.4 H (3.8-10.6) k/uL RBC 2.64 L (4.30-5.90) m/uL Hgb 8.9 L (13.0-17.5) gm/dL Hct 27.0 L (39.0-53.0) % MCV 102.1 H (80.0-100.0) fL Neutrophils # 8.0 H (1.3-7.7) k/uL Monocytes # (0-1.0) k/uL APTT (22.0-30.0) sec Sodium (137-145) mmol/L Chloride 111 H (98-107) mmol/L Carbon Dioxide (22-30) mmol/L BUN 72 H (9-20) mg/dL Creatinine (0.66-1.25) mg/dL Glucose 104 H (74-99) mg/dL Troponin I 0.115 H* (0.000-0.034) ng/mL Total Protein (6.3-8.2) g/dL Albumin (3.5-5.0) g/dL Assessment and Plan (1) GI bleed Narrative/Plan: 75-year-old male who presented to the emergency department yesterday evening with complaints of multiple episodes of loose black tarry stool followed by maroon colored emesis. Has no previous history of peptic ulcer disease or GI bleed. He is not on any anticoagulation, however does take a daily low-dose aspirin as well as ibuprofen 800 mg approximately every other day for osteoarthritis. He denies any significant acid reflux, however states he has been getting intermittently along with intermittent epigastric pain. He does follow with the gastroenterology or the last several years for changes in his bowel pattern. His last colonoscopy was 2 years ago which was significant for polypectomy and he is to have a repeat in one year. He has had no previous EGD. On admission he was noted to be anemic with a hemoglobin of 10.4 which has been trending down. Today's repeat is 8.9. He has also had elevated troponins 3 and cardiology are following patient. We'll tentatively schedule patient for EGD tomorrow pending clearance by cardiology. Current Visit: Yes Status: Acute Code(s): K92.2 - GASTROINTESTINAL HEMORRHAGE, UNSPECIFIED SNOMED Code(s): 73539414 (2) Elevated troponin Current Visit: Yes Status: Acute Code(s): R77.8 - OTHER SPECIFIED ABNORMALITIES OF PLASMA PROTEINS SNOMED Code(s): 257451482 Plan: 1. Full liquid diet 2. Nothing by mouth after midnight 3. Protonix 40 mg twice a day for GI prophylaxis 4. Avoid NSAIDs 5. Repeat CBC daily transfuse her hemoglobin less than 7 6. Cardiology on consult, patient cleared for EGD 7. Will proceed with EGD tomorrow. Procedure discussed with patient in detail including risks and benefits, he is willing to proceed. Thank you for this consultation, we will continue to follow. Dr. Tutu Reyes I agree with the dictator's note, documented as a scribe by Jie Ward.
--- NOTE | 2020-11-20 12:46 | P.PN ---
Subjective Progress Note Date: 11/20/20 Patient was seen and evaluated this morning. He denies abdominal pain. No more bowel movements since admission. Objective - Vital Signs Vital signs: Vital Signs Temp 98.0 F 11/20/20 11:46 Pulse 82 11/20/20 11:46 Resp 20 11/20/20 11:46 BP 126/68 11/20/20 11:46 Pulse Ox 99 11/20/20 11:46 Intake & Output 11/19/20 11/20/20 11/20/20 18:59 06:59 18:59 Intake Total 0 Output Total 525 Balance -525 Weight 108.862 kg 110.4 kg Intake: Oral 0 Output: Urine 525 Other: Voiding Method Toilet Toilet Urinal Urinal # Voids 1 - Exam General: The patient is awake and alert, in no distress Eye: there is normal conjunctiva bilaterally. Neck: The neck is supple, there is no JVD. Cardiovascular: Normal S1-S2, no S3-S4, no murmurs. Respiratory: Lungs clear to auscultation bilaterally Gastrointestinal: Abdomen is soft, nontender Musculoskeletal: There is no pedal edema. Neurological:. Speech is normal. Skin: Skin is warm and dry - Labs CBC & Chem 7: 11/20/20 04:45 11/20/20 04:45 Labs: Abnormal Lab Results - Last 24 Hours (Table) 11/19/20 11/19/20 11/19/20 Range/Units 19:43 19:43 19:43 WBC 15.5 H (3.8-10.6) k/uL RBC 3.01 L (4.30-5.90) m/uL Hgb 10.4 L (13.0-17.5) gm/dL Hct 30.6 L (39.0-53.0) % MCV 101.6 H (80.0-100.0) fL Neutrophils # 12.6 H (1.3-7.7) k/uL Monocytes # 1.1 H (0-1.0) k/uL APTT 19.7 L (22.0-30.0) sec Sodium 133 L (137-145) mmol/L Chloride (98-107) mmol/L Carbon Dioxide 19 L (22-30) mmol/L BUN 87 H (9-20) mg/dL Creatinine 1.32 H (0.66-1.25) mg/dL Glucose 114 H (74-99) mg/dL Troponin I (0.000-0.034) ng/mL Total Protein 5.6 L (6.3-8.2) g/dL Albumin 3.4 L (3.5-5.0) g/dL Triglycerides (0.00-149.00) mg/dL 11/19/20 11/19/20 11/20/20 Range/Units 19:43 21:55 00:29 WBC 13.1 H (3.8-10.6) k/uL RBC 2.80 L (4.30-5.90) m/uL Hgb 9.4 L (13.0-17.5) gm/dL Hct 27.8 L (39.0-53.0) % MCV (80.0-100.0) fL Neutrophils # 9.4 H (1.3-7.7) k/uL Monocytes # 1.1 H (0-1.0) k/uL APTT (22.0-30.0) sec Sodium (137-145) mmol/L Chloride (98-107) mmol/L Carbon Dioxide (22-30) mmol/L BUN (9-20) mg/dL Creatinine (0.66-1.25) mg/dL Glucose (74-99) mg/dL Troponin I 0.115 H* 0.140 H* (0.000-0.034) ng/mL Total Protein (6.3-8.2) g/dL Albumin (3.5-5.0) g/dL Triglycerides (0.00-149.00) mg/dL 11/20/20 11/20/20 11/20/20 Range/Units 01:00 04:45 04:45 WBC 11.4 H (3.8-10.6) k/uL RBC 2.64 L (4.30-5.90) m/uL Hgb 8.9 L (13.0-17.5) gm/dL Hct 27.0 L (39.0-53.0) % MCV 102.1 H (80.0-100.0) fL Neutrophils # 8.0 H (1.3-7.7) k/uL Monocytes # (0-1.0) k/uL APTT (22.0-30.0) sec Sodium (137-145) mmol/L Chloride (98-107) mmol/L Carbon Dioxide (22-30) mmol/L BUN (9-20) mg/dL Creatinine (0.66-1.25) mg/dL Glucose (74-99) mg/dL Troponin I 0.115 H* (0.000-0.034) ng/mL Total Protein (6.3-8.2) g/dL Albumin (3.5-5.0) g/dL Triglycerides 179.00 H (0.00-149.00) mg/dL 11/20/20 Range/Units 04:45 WBC (3.8-10.6) k/uL RBC (4.30-5.90) m/uL Hgb (13.0-17.5) gm/dL Hct (39.0-53.0) % MCV (80.0-100.0) fL Neutrophils # (1.3-7.7) k/uL Monocytes # (0-1.0) k/uL APTT (22.0-30.0) sec Sodium (137-145) mmol/L Chloride 111 H (98-107) mmol/L Carbon Dioxide (22-30) mmol/L BUN 72 H (9-20) mg/dL Creatinine (0.66-1.25) mg/dL Glucose 104 H (74-99) mg/dL Troponin I (0.000-0.034) ng/mL Total Protein (6.3-8.2) g/dL Albumin (3.5-5.0) g/dL Triglycerides (0.00-149.00) mg/dL Assessment and Plan Assessment: This is a 75-year-old male with past medical history noted below who presented to the emergency room with black tarry stool. Patient was evaluated in the ER and admitted to the hospital for further management of his medical problems noted below. 1. Suspected upper GI bleed: Seen and evaluated by GI. Continue IV Protonix. Plan for EGD tomorrow. 2. Acute blood loss anemia: We will continue to monitor closely and transfuse as needed 3. Troponin elevation: Most likely non-thrombotic troponin leak secondary to demand/supply mismatch. Seen and evaluated by cardiology. Echocardiogram showed preserved ejection fraction with no significant valvular or wall motion abnormalities 4. Acute kidney injury: Creatinine improved with IV fluid hydration 5. Chronic medical problems: Hyperlipidemia, hypothyroidism
[2020-11-20] MEDS ORDERED: ATORVASTATIN 40 MG TAB PO SCH (21:00)
[2020-11-20] MEDS ORDERED: MONTELUKAST 10 MG TAB PO SCH (21:00)
[2020-11-21] MEDS: LEVOTHYROXINE 50 MCG TAB PO SCH (04:53)
[2020-11-21 07:43] LABS: MCH 34.2 pg (25.0-35.0); MCHC 33.2 g/dL (31.0-37.0); Macrocytosis Slight; Mean Platelet Volume 8.5; Platelet Count 165 k/uL (150-450); RBC 2.34 m/uL (4.30-5.90); RDW 12.5 % (11.5-15.5)
[2020-11-21] MEDS: IPRATROPIUM-ALBUTEROL 3 ML NEB INHALATION SCH ×3 (07:58→16:52)
[2020-11-21] MEDS: SYMBICORT 80-4.5 MCG INHALER INHALATION SCH (07:58)
[2020-11-21 08:06] LABS: Potassium 4.9 mmol/L (3.5-5.1)
[2020-11-21 08:16] VITALS: TEMP 97.6
[2020-11-21 08:57] LABS: Calcium 8.6 mg/dL (8.4-10.2)
[2020-11-21] MEDS: PANTOPRAZOLE 40 MG/10 ML VIAL IVP SCH (09:00)
[2020-11-21 12:06] VITALS: BP 136/74; RESP 18
[2020-11-21 12:23] VITALS: PULSE 96
--- NOTE | 2020-11-21 12:38 | P.PN ---
Subjective This is a 75-year-old male with a past medical history significant for hypertension, hyperlipidemia, hypothyroidism, asthma, AAA, and nicotine depend ence. Patient follows with a front office coordinator out of [facility] but he is unsure of the name. We have been asked to see the patient in consultation for abnormal troponins. Patient admitted to the hospital with multiple episodes of diarrhea that was black in color. He also reported one episode of emesis that was dark red in color. The patient is not on anticoagulation. He does report taking a baby aspirin daily. His hemoglobin was 10.4 on admission, now 8.0. Troponin 0.115. 0.140. 0.115. Stool for occult blood positive. Echocardiogram revealed EF 6065 percent, mild aortic stenosis with a peak/mean gradient of 30/60 mmHg, mild tricuspid regurgitation, mild pulmonary hypertension with an RVSP of 38 mmHg. Patient seen and examined at bedside, no acute distress. Blood pressure 136/74, heart rate 80, afebrile, maintaining saturations on room air. Laboratory data reviewed hemoglobin 8.0, platelets 165, sodium 136, potassium 4.9, BUN 30, serum creatinine 0.9. Aspirin is currently still on hold. Patient is currently maintained on atorvastatin 40 mg nightly. PHYSICAL EXAM: VITAL SIGNS: Reviewed. GENERAL: Well-developed in no acute distress. HEENT: Neck supple. No JVD LUNGS: Respirations even and unlabored. Lungs diminished with expiratory wheezing bilaterally. HEART: Regular rate and rhythm. S1 and S2 heard. Systolic murmur noted. ABDOMEN: Soft. Nondistended. Nontender. EXTREMITIES: Normal range of motion. No clubbing or cyanosis. Peripheral pulses intact. No lower extremity edema NEUROLOGIC: Awake and alert. Oriented x 3. ASSESSMENT: Acute GI bleed Acute blood loss anemia Abnormal troponins, no evidence of acute coronary syndrome, suspect type II RI due to oxygen supply and demand mismatch secondary to anemia History of AAA Known heart murmur, suspect aortic stenosis Hypertension Hyperlipidemia Hypothyroidism Nicotine dependence PLAN: An acute coronary event has been ruled out. Continue lisinopril and Lipitor Patient to undergo EGD today There are no absolute contraindications from a cardiac standpoint to undergo endoscopy Recommend restarting aspirin when cleared by GI We will follow the patient as needed. Please reach out with further questions or concerns. Nurse practitioner note has been reviewed by physician. Signing provider agrees with the documented findings, assessment, and plan of care. Objective - Vital Signs Vital signs: Vital Signs Temp 97.6 F 11/21/20 08:15 Pulse 96 11/21/20 12:22 Resp 18 11/21/20 12:15 BP 136/74 11/21/20 12:00 Pulse Ox 99 11/21/20 12:00 Intake & Output 11/20/20 11/21/20 11/21/20 18:59 06:59 18:59 Intake Total 200 540 Output Total 300 Balance 200 240 Weight 108 kg Intake: Oral 200 540 Output: Urine 300 Other: Voiding Method Toilet Toilet Urinal # Voids 350 2 1 - Labs CBC & Chem 7: 11/21/20 07:24 11/21/20 07:24 Labs: Abnormal Lab Results - Last 24 Hours (Table) 11/21/20 11/21/20 Range/Units 07:24 07:24 RBC 2.34 L (4.30-5.90) m/uL Hgb 8.0 L (13.0-17.5) gm/dL Hct 24.0 L (39.0-53.0) % MCV 103.0 H (80.0-100.0) fL Sodium 136 L (137-145) mmol/L Chloride 108 H (98-107) mmol/L BUN 30 H (9-20) mg/dL Glucose 109 H (74-99) mg/dL
[2020-11-21] MEDS ORDERED: PROPOFOL 10 MG/ML 20 ML VIAL IV ONE (13:26)
[2020-11-21] MEDS ORDERED: LIDOCAINE 1% INJ 10MG/ML (20 ML MDV) ONE (13:26)
[2020-11-21] MEDS ORDERED: SODIUM CHLORIDE 0.9% 500 ML 500 ML IV ONE ×2 (13:29)
--- NOTE | 2020-11-21 13:40 | P.PCN ---
Date of Procedure: 11/21/20 Procedure(s) Performed: BRIEF HISTORY: Patient is a 75-year-old, pleasant, white male scheduled for an upper endoscopy as a part of evaluation of acute GI bleed. He presented to the hospital multiple episodes of black tarry stools.. PROCEDURE PERFORMED: Esophagogastroduodenoscopy biopsy. PREOPERATIVE DIAGNOSIS: Acute upper GI bleed. IV sedation per anesthesia. PROCEDURE: After informed consent was obtained, the patient was brought into the endoscopy unit. IV sedation was administered by Anesthesia under continuous monitoring. Initially the Olympus GIF-140 video endoscope was inserted into the mouth. Esophagus intubated without any difficulty. It was gradually advanced into the stomach and duodenum and carefully examined. The bulb and the second part of the duodenum appeared normal. The scope at this time was withdrawn to the stomach, adequately insufflated with air, and upon careful examination, mucosa of the antrum, had 2 ulcerations measuring 1 cm and 2 cm linear ulcers with no active bleeding which were biopsied. In the distal body the stomach there was a 1.5 cm submucosal polyp identified with smooth surface and multiple biopsies were done from this area. body, cardia and the fundus appeared normal. The scope was then withdrawn into the esophagus. The GE junction was located at 39 cm from the incisors. The esophagus appeared normal. There were no erosions or ulcerations seen and the patient tolerated the procedure well. IMPRESSION: 1. 1 cm and 5 mm linear antral ulcers with no active bleeding. 2. 1.5 cm submucosal polyp in the distal body the stomach status post biopsy. RECOMMENDATIONS: The findings of this examination were discussed with the patient as well as his family. He was advised to follow with the biopsy results. Continue Protonix 40 mg daily and await biopsy results. Diet will be advanced as tolerated. Patient was advised to follow up in office in 2 weeks.
--- NOTE | 2020-11-21 16:07 | P.DS ---
Providers Date of admission: 11/20/20 00:55 Expected date of discharge: 11/21/20 Attending physician: Sid Love MD Consults: 11/19/20 20:57 Consult Physician Urgent Consulting Provider: Chance Maza Consult Reason/Comments: Elevated troponin Do you want consulting provider notified?: Already Contacted 11/19/20 20:58 Consult Physician Urgent Consulting Provider: Charline Reyes Consult Reason/Comments: Gi bleed Do you want consulting provider notified?: Yes Primary care physician: Physician Nonstaff Hospital Course: This is a 75-year-old male with past medical history noted below who presented to the emergency room with black tarry stool. Patient was evaluated in the ER and admitted to the hospital for further management of his medical problems noted below. 1. Suspected upper GI bleed: Seen and evaluated by GI. Status post EGD during this admission showing 2 small linear antral ulcers with no evidence of bleeding. Patient was started on Protonix twice daily. There was also one submucosal poorly in the distal body of the stomach that was biopsied. 2. Acute blood loss anemia: Hemoglobin stabilized around 8. Repeat CBC next week with PCP 3. Troponin elevation: Most likely non-thrombotic troponin leak secondary to demand/supply mismatch. Seen and evaluated by cardiology. Echocardiogram showed preserved ejection fraction with no significant valvular or wall motion abnormalities 4. Acute kidney injury: Creatinine improved with IV fluid hydration 5. Chronic medical problems: Hyperlipidemia, hypothyroidism Patient will be discharged home in a stable condition. Physical exam: General: The patient is awake and alert, in no distress Eye: there is normal conjunctiva bilaterally. Neck: The neck is supple, there is no JVD. Cardiovascular: Normal S1-S2, no S3-S4, no murmurs. Respiratory: Lungs clear to auscultation bilaterally Gastrointestinal: Abdomen is soft, nontender Musculoskeletal: There is no pedal edema. Neurological:. Speech is normal. Skin: Skin is warm and dry Patient Condition at Discharge: Fair Plan - Discharge Summary Discharge Rx Participant: No New Discharge Prescriptions: New Pantoprazole Sodium [Protonix] 40 mg PO AC-BID 30 Days #60 tab Continue Fluticasone Propion/Salmeterol [Wixela 250-50 Inhub] 1 puff INHALATION RT-BID lisinopriL [Prinivil] 20 mg PO DAILY Albuterol Sulfate [Proair Hfa] 2 puff INHALATION RT-Q6H PRN PRN Reason: Shortness Of Breath Sildenafil [Revatio] 20 mg PO DAILY PRN PRN Reason: SEXUAL INTERCOURSE Montelukast Sodium [Singulair] 10 mg PO HS Meclizine HCl 25 mg PO TID PRN PRN Reason: DIZZINESS Levothyroxine Sodium [Synthroid] 50 mcg PO DAILY Atorvastatin [Lipitor] 40 mg PO HS Discharge Medication List Albuterol Sulfate [Proair Hfa] 2 puff INHALATION RT-Q6H PRN 11/19/20 [History] Atorvastatin [Lipitor] 40 mg PO HS 11/19/20 [History] Fluticasone Propion/Salmeterol [Wixela 250-50 Inhub] 1 puff INHALATION RT-BID 11/19/20 [History] Levothyroxine Sodium [Synthroid] 50 mcg PO DAILY 11/19/20 [History] Meclizine HCl 25 mg PO TID PRN 11/19/20 [History] Montelukast Sodium [Singulair] 10 mg PO HS 11/19/20 [History] Sildenafil [Revatio] 20 mg PO DAILY PRN 11/19/20 [History] lisinopriL [Prinivil] 20 mg PO DAILY 11/19/20 [History] Pantoprazole Sodium [Protonix] 40 mg PO AC-BID 30 Days #60 tab 11/21/20 [Rx] Follow up Appointment(s)/Referral(s): Charline Reyes MD [STAFF PHYSICIAN] - As Needed Nonstaff,Physician [Primary Care Provider] - 1-2 days Activity/Diet/Wound Care/Special Instructions: Follow up with your Primary refuse collector in 1-2 weeks. Discharge Disposition: HOME SELF-CARE
[2020-11-22] MEDS ORDERED: lisinopriL 20 MG TAB PO SCH (09:00)
== END 2020-11-21 16:40 | disposition home or self-care (01) ==
LOC: EC 18:41 → 3SCARD 20:46 → OBSVTOIN 20:46 → INTOOBSV 20:46 → OBSVTOIN 11-20 00:55 → INTOOBSV 11-20 00:55 → 3SCARD 11-20 00:57 → UNDODISOB 11-21 16:40 → UNDODISIN 11-21 16:40
PROVIDERS: ADMIT Internal Medicine; ATTEND Internal Medicine
PROC: 0DB68ZX Excision of Stomach, Via Natural or Artificial Opening Endoscopic, Diagnostic (ICD-10-PCS; principal; 2020-11-21 12:15)
DX: K25.4 Chronic or unspecified gastric ulcer with hemorrhage (principal); D62 Acute posthemorrhagic anemia; N17.9 Acute kidney failure, unspecified; I11.9 Hypertensive heart disease without heart failure; K29.51 Unspecified chronic gastritis with bleeding; K31.7 Polyp of stomach and duodenum; R79.89 Other specified abnormal findings of blood chemistry; I08.2 Rheumatic disorders of both aortic and tricuspid valves; I27.20 Pulmonary hypertension, unspecified; J45.909 Unspecified asthma, uncomplicated; D72.829 Elevated white blood cell count, unspecified; I71.4 Abdominal aortic aneurysm, without rupture; G47.30 Sleep apnea, unspecified; K21.9 Gastro-esophageal reflux disease without esophagitis; R42 Dizziness and giddiness; E03.9 Hypothyroidism, unspecified; M19.90 Unspecified osteoarthritis, unspecified site; E78.5 Hyperlipidemia, unspecified; F17.210 Nicotine dependence, cigarettes, uncomplicated; E66.01 Morbid (severe) obesity due to excess calories; Z68.39 Body mass index [BMI] 39.0-39.9, adult; Z20.822 Contact with and (suspected) exposure to COVID-19; Z79.51 Long term (current) use of inhaled steroids; Z79.82 Long term (current) use of aspirin; Z79.890 Hormone replacement therapy; Z79.899 Other long term (current) drug therapy; Z98.49 Cataract extraction status, unspecified eye; Z86.010 Personal history of colon polyps; Z82.61 Family history of arthritis; Z80.9 Family history of malignant neoplasm, unspecified; Z82.0 Family history of epilepsy and other diseases of the nervous system
CPT/HCPCS: 96376 ×3; 96374; 99291; 36415; 94640 ×4; 93005; 93306; 86900; 86901; 88305; 80061; 80053; 80048 ×2; 83605; 83690; 83735; 84484 ×2; 85025 ×2; 85027; 85610; 85730; 86850; 82272; 87635; 43239; G0378 ×3; J2001; J2704; C9113 ×3